=== PATIENT | female | born 1980 | race Caucasian/White ===

== ENCOUNTER 2017-03-02 05:20 | Inpatient (IN) | payer OTHER ==
[~2017-03-02] VITALS: Ht 167.6 cm; Wt 86.2 kg
[2017-03-02] VITALS (9 sets, daily range): BP systolic 112–137; BP diastolic 54–89
--- NOTE | ~2017-03-02 | S ---
[facility] [place] [address] SURGICAL PATH RPT PROCEDURE Name: FABY MCNEILL Room #: 433-I [facility] IN .R.#: [id number] Admission: 03/02/17 Date of : 78 Discharge: 03/04/17 Report #: [id number] Path Case #: [id number] PATHOLOGY REPORT COLLECTION DATE: 03/02/2017 RECEIVED DATE: 03/02/2017 SUBMITTING PHYS: Dr. Ciara Reynolds OTHER PHYS: Dr. Donnie Clements, DO Dr. Alessandro Dang SPECIMEN(S) RECEIVED: A.Mesh B.Hernia sac * * * * * * * * * * * * FINAL DIAGNOSIS: A. "Mesh", removal: - Foreign body consistent with synthetic mesh (gross examination only). B. "Hernia sac", hernia repair: - Vascularized fibroadipose connective tissue and skeletal muscle with mesothelial lining consistent with hernia sac showing reactive mesothelial hyperplasia and skeletal muscle atrophy. (CLW:jeff; 03/06/2017) PATHOLOGIST: Shilpa Pfeiffer M.D. REPORT ELECTRONICALLY SIGNED BY: Shilpa Pfeiffer M.D. DATE/TIME: 03/06/2017 10:35 * * * * * * * * * * * * GROSS PATHOLOGY: A. The specimen is received in formalin labeled "Faby Mcneill, beatriz". Received are three segments of mesh-like material measuring 10.4 x 9.2 x 0.5 cm in aggregate dimensions. A gross photograph is taken. Sections are not submitted. B. The specimen is received in formalin labeled "Faby Mcneill, hernia sac". Received is a segment of pale narvaez fibromembranous tissue measuring 3.2 x 2.2 x 0.5 cm in greatest dimensions. The specimen is submitted representatively in cassette B1. (CAA; 03/05/2017) CLINICAL HISTORY: Recurrent ventral hernia INITIAL CPT CODE(S): [address] [address] SURGICAL PATH RPT PROCEDURE Name: FABY MCNEILL Room #: 433-I [facility] IN [facility].#: [id number] Admission: 03/02/17 Date of : 78 Discharge: 03/04/17 Report #: [id number] Path Case #: [id number]; [id number] B; [id number] Professional services performed by [facility] at [address], [place] [address] Technical services performed by [facility] at [address] [place] [address], [facility] [address] [address]. [facility] [address] [place] [address] PHONE: [phone] DIRECTOR: Andres Akhtar M.D. * * * END OF REPORT * * *
--- NOTE | ~2017-03-02 | O ---
[facility] [place] [address] OPERATIVE REPORT Name: OSITOLISS GODINEZ Room #: 433-I ADM IN .R.#: [id number] Admission: 03/02/17 Attend Phys: Ciara Reynolds MD, Discharge: Date of : 78 Report #: [id number] THIS REPORT FOR: //name// CC: Alessandro Reynolds DATE OF SERVICE: 03/02/2017 PREOPERATIVE DIAGNOSES: 1. Recurrent incisional ventral hernias x 2. 2. Obesity with a BMI of greater than 30. 3. Hypertension. 4. Hypercholesterolemia. 5. Asthma. POSTOPERATIVE DIAGNOSES: 1. Incarcerated recurrent incisional ventral hernias x 3. 2. Obesity with a BMI of greater than 30. 3. Hypertension. 4. Hypercholesterolemia. 5. Asthma. PROCEDURES PERFORMED: 1. Exploratory laparotomy with lysis of adhesions. 2. Debridement of ischemic abdominal wall fascia with explantation of dislodged prior placed synthetic mesh. 3. Complex abdominal wall reconstruction with open repair of multiple incarcerated recurrent incisional ventral hernias with mesh. 4. Bilateral component separation of the anterior abdominal wall. 5. Adjacent tissue transfer closure of the anterior abdominal wall, ultimately measuring 36 x 33 cm in dimension (1188 square cm). 6. Placement of a topical wound VAC device (Prevena). SURGEON: Ciara Reynolds MD PATIENT CARE REPRESENTATIVE: Donnie Clements DO ANESTHESIA: General endotracheal anesthesia. ESTIMATED BLOOD LOSS: Minimal (less than 50 mL). COMPLICATIONS: None appreciated. SPECIMENS: Ischemic abdominal wall tissue and mesh to Pathology. INDICATIONS: The patient is a 36-year-old obese female with a past [facility] [address] [place] [address] OPERATIVE REPORT Name: LISS MCNEILL GRETCHEN Room #: 433-I [facility] IN [facility].#: [id number] Admission: 03/02/17 Attend Phys: Ciara Reynolds MD, Discharge: Date of : 78 Report #: [id number] history of multiple surgical explorations including a nephrectomy, weight loss surgery, multiple hernia repairs and a hysterectomy. At the time of the patient's prior hernia repair attempts, multiple pieces of synthetic mesh were placed. Unfortunately, the patient has had recurrent complaints of abdominal pain around the umbilicus and the right flank and CT scan imaging showed recurrence of multiple incisional ventral hernias. As such, indication was for procedures listed above today. DESCRIPTION OF PROCEDURE: After explaining the risks, benefits and alternatives of the procedure with the patient in detail and obtaining consent, the patient was brought to the operating room and placed supine on the operating room table. After conducting a thorough timeout procedure verifying correct patient and procedure, the patient was given general endotracheal anesthesia. Once adequate anesthesia was obtained, SCDs were hooked up to pneumatic compression device and she was given a preoperative dose of antibiotics in line with the SCIP protocol. The patient's abdomen was prepped and draped in standard surgical sterile fashion. A #10 bladed scalpel was used to create a longitudinal midline incision from the supraumbilical to the infraumbilical location, carried to the side of the umbilicus. Electrocautery was used to carry this down through skin and subcutaneous tissues to ensure hemostasis. Once I arrived upon the anterior fascia, this was scored longitudinally and a small recurrent defect was seen at the inferior most portion of the incision. I was able place a finger in this defect and proceeded to open the midline wound, which was in fact just mesh as the mesh was used in a bridging fashion laparoscopically and opened the mesh down the midline using curved Salazar scissors. I continued to open the midline wound at the fascial level for significant ways in craniocaudal direction as the patient had a thick subcutaneous layer and we were able to stretch the skin to open the fascia for approximately 20 cm in craniocaudal dimension. I now proceeded to debride all ischemic abdominal wall tissue including dislodged synthetic mesh as well as the bridge to synthetic mesh using curved Salazar scissors. Electrocautery was used for hemostasis. Evaluation of the abdominal wall showed evidence of 2 recurrent hernias that were incarcerated with omentum down the midline as well as 1 in the right flank. I now proceeded to perform repair in a complex abdominal wall reconstruction fashion utilizing transversus abdominis rectus release for the bilateral component separation to attain complete fascial closure. I debrided back the subcutaneous tissue to expose fascia circumferentially externally on the abdominal wall. I then elevated the fascial edges and proceeded to score the peritoneum approximately 0.5 cm lateral to the midline wound and was able to enter into the transversus space by transecting the transversus abdominis rectus muscle. I carried these dissections far laterally on both the left and right sides as possible completing the bilateral component separation technique. This gained significant medial mobilization and allowed me to bring the posterior fascia together without tension down the midline. This was carried as far laterally on the right side to go well beyond the herniated defect. I now proceeded to repair the posterior defect for the hernia on the far right lateral flank using [facility] [address] [place] [address] OPERATIVE REPORT Name: LISS MCNEILL Room #: 433-I ADM IN M.R.#: [id number] Admission: 03/02/17 Attend Phys: Ciara Reynolds MD, Discharge: Date of : 78 Report #: [id number] #1 Prolene. I then closed the midline fascial wound for the posterior fascia using looped #1 Prolene as well. This was done with 2 separate sutures, running the first from inferior to superior and the second from superior to inferior direction. The sutures were tied together at the midline. I now selected a piece of Prolene mesh measuring 30 x 30 cm in dimension. This was tailored to fit the preperitoneal space in the transversus layer and was anchored into position using numerous sutures of #1 PDS suture. This showed that the mesh laid flat against the posterior fascial repair even when bring the anterior fascia together. There was no evidence of rippling. Once this was secured into place with several PDS suture circumferentially as well as placing a few throughout the midline, anchoring it to the midline fascial closure, I proceeded to close the anterior fascia using running looped #1 PDS suture in standard fashion. As I created large skin flaps circumferentially externally, I wanted to ensure vascularized tissue overlying the midline fascial wound. I therefore performed an adjacent tissue transfer closure of the anterior abdominal wall. The abdominal wall was elevated and I made relaxing incisions internally and was able to medially rotate vascularized pedicles overlying the midline wound. This was anchored into position using numerous sutures of 3-0 Vicryl in standard interrupted inverted fashion. Skin was then closed with skin vikash. I did elect to place a topical wound VAC device overlying the wound to prevent wound infection and this was placed in standard fashion. We had no evidence of a leak from the wound VAC at the completion. At the termination of the procedure, all instrument, needle and sponge counts were correct. The patient tolerated the procedure without incident, was awakened in the operating room and transitioned to the recovery room in stable condition with no apparent complications. <ELECTRONICALLY SIGNED> By: Ciraa Reynolds MD, FACS 03/04/17 [id number] Ciara Reynolds MD, FACS /nt
[~2017-03-02 05:20] MED LIST: AEROECLIPSE1 EACH MC; ALBUTEROL2.5 MG/0.5 IH; ALBUTEROL2.5 MG/31 INH; ATENOLOL 50MG T50 M1 PO; BYSTOLIC 5 MG5 M1; CARAFATE 1 GM TA1 G1 PO; CELEXA40 MG PO; CHLORZOXAZONE500 MG PO; CYMBALTA30 MG PO; DICLOFENAC SODI75 MG PO; DIOVAN40 MG PO; DOXYCYCLINE 10100 MG PO; DULERA 200 MCG/13 GM; FLEXERIL PO; IMITREX100 MG PO; LOSARTAN POTAS100 MG PO; LOSARTAN-HCTZ1 EAC3 PO; MEDROLDOSEPACK PO; MUCINEX DM TABL1 TA1 PO; MULTIVITAMINS1 EAC7 PO; NORCO 5-325 TA1 EAC1 PO; NORVASC5 MG PO; OMEPRAZOLE 20 M20 M1; OXYCONTIN10 M1; PREDNISONE 20 M20 M1 PO; PROAIR HFA8.5 GM INH; PROAIR HFA8.5 GM PO; PROCARE1 EACH MC; PROTONIX40 M1 PO; ROBAXIN 750 MG750 M1 PO; SYNTHROID150 MCG PO; TESSALON PERLE100 M1 PO; TRAZODONE HCL50 MG PO; TUSSIONEX PENN473 ML PO; VENTOLIN HFA 1818 GM; VERAPAMIL ER240 M1 PO; ZANAFLEX4 MG; ZOLOFT50 MG PO; ZPAK PO; ZYRTEC10 M2
[2017-03-02 10:07] LABS: HEMATOCRIT 41.1 % (37.0-47.0); HEMOGLOBIN 13.6 gm/dL (12.0-15.0); MCH 29.8 pg (26.0-34.0); MCV 90.3 fL (80.0-100.0); RBC 4.55 mil/uL (4.20-5.00); RDW 13.7 % (10.5-14.5); WBC 6.5 thou/uL (4.0-11.0)
[2017-03-02 10:18] LABS: CALCIUM 9.1 mg/dL (8.5-10.1); CREATININE 0.7 mg/dL (0.6-1.0); POTASSIUM 4.2 mmol/L (3.5-5.1)
[2017-03-02 10:24] LABS: ALBUMIN 3.9 g/dL (3.4-5.0); TOTAL BILIRUBIN 0.6 mg/dL (<0.1-1.0); TOTAL PROTEIN 7.7 g/dL (6.4-8.2)
[2017-03-03 03:46] VITALS: BP 116/73
[2017-03-03 03:54] LABS: HEMATOCRIT 40.3 % (37.0-47.0); HEMOGLOBIN 12.9 gm/dL (12.0-15.0); MCH 29.2 pg (26.0-34.0); MCHC 31.9 g/dL (28.0-37.0); MCV 91.7 fL (80.0-100.0); RBC 4.4 mil/uL (4.20-5.00); RDW 13.7 % (10.5-14.5); WBC 20.4 thou/uL (4.0-11.0)
[2017-03-03 04:02] LABS: CALCIUM 8.1 mg/dL (8.5-10.1); POTASSIUM 4.7 mmol/L (3.5-5.1)
[2017-03-03 08:00] VITALS: BP 112/58
[2017-03-03 16:00] VITALS: BP 115/65
[2017-03-03 19:07] VITALS: BP 105/56
[2017-03-04 03:45] LABS: ABSOLUTE NEUTROPHILS 9.3 thou/uL (1.4-8.2); BASOPHILS 0.3 % (0.0-2.0); HEMATOCRIT 37.2 % (37.0-47.0); LYMPHOCYTES 9.3 % (24.0-44.0); MCH 29.6 pg (26.0-34.0); MCHC 32.3 g/dL (28.0-37.0); MCV 91.8 fL (80.0-100.0); MONOCYTES 5.9 % (1.0-8.0); PLATELET COUNT 256 thou/uL (150-400); POLYS 80.5 % (36.0-66.0); RBC 4.05 mil/uL (4.20-5.00); RDW 13.7 % (10.5-14.5); WBC 11.5 thou/uL (4.0-11.0)
[2017-03-04 03:46] LABS: MANUAL DIFF NO
[2017-03-04 03:53] VITALS: BP 106/69
[2017-03-04 04:04] LABS: CALCIUM 7.7 mg/dL (8.5-10.1); CREATININE 0.8 mg/dL (0.6-1.0); POTASSIUM 4.9 mmol/L (3.5-5.1)
[2017-03-04 07:12] VITALS: BP 101/62
[2017-03-04] MEDS ORDERED: GABAPENTIN 100100 MG PO (13:20)
[2017-03-04] MEDS ORDERED: SENOKOT-S1 TA2 PO (13:20)
[2017-03-04] MEDS ORDERED: ALPRAZOLAM 0.50.5 MG PO (13:20)
[2017-03-04] MEDS ORDERED: DILAUDID 2 MG TA2 MG PO (13:20)
[2017-03-04 14:37] VITALS: BP 101/62
== END 2017-03-04 15:13 | disposition home or self-care (01) | DRG 355 ==
LOC: TBA 05:20 → 4S 05:20 → OR 14:58 → EDSTATUS 15:24 → PRE 16:11 → 4S 18:29
PROVIDERS: Surgery
PROC: 0JX80ZZ Transfer Abdomen Subcutaneous Tissue and Fascia, Open Approach (ICD-10-PCS; principal; 2017-03-02)
PROC: 0WUF0JZ Supplement Abdominal Wall with Synthetic Substitute, Open Approach (ICD-10-PCS; principal; 2017-03-02)
DX: K43.0 Incisional hernia with obstruction, without gangrene (principal); E66.9 Obesity, unspecified; E78.00 Pure hypercholesterolemia, unspecified; I10 Essential (primary) hypertension; J45.909 Unspecified asthma, uncomplicated; Z68.30 Body mass index [BMI] 30.0-30.9, adult; Z88.2 Allergy status to sulfonamides
CPT/HCPCS: 10102; 50010; 50101; 50386; 50455; 50953; 51412; 56524; 56525; 56527; 56530; 57092; 62110; 62900; 64007; 65002; 70005

== ENCOUNTER → 2017-06-22 | Outpatient (CLI) | payer OTHER ==
[~2017-06-22] MED LIST changes: +ALPRAZOLAM 0.50.5 MG PO; +DILAUDID 2 MG TA2 MG PO; +GABAPENTIN 100100 MG PO; +SENOKOT-S1 TA2 PO
== END ==
LOC: CAT 08:39
DX: K43.9 Ventral hernia without obstruction or gangrene (principal); J98.11 Atelectasis; Z90.49 Acquired absence of other specified parts of digestive tract